=== PATIENT | female | born 1995 | race Caucasian/White ===

== ENCOUNTER 2016-11-14 22:58 | Emergency (ER) | payer BC, OTHER ==
[~2016-11-14] VITALS: Ht 160 cm; Wt 57.0 kg
[2016-11-14 23:00] VITALS: TEMP 36.4; Ht 160 cm; Wt 57.0 kg
[2016-11-14] MEDS ORDERED: SPIR25TA PO (23:18)
[2016-11-14] MEDS ORDERED: DOXY1TAB6 PO (23:18)
[2016-11-14] MEDS ORDERED: BUTA1CAP17 PO (23:18)
[2016-11-14] MEDS ORDERED: CALC600T PO (23:20)
[2016-11-14] MEDS ORDERED: MULT-506 PO (23:20)
[2016-11-14] MEDS ORDERED: CHOL1000 PO (23:20)
[2016-11-14 23:42] LABS: BUN/CREATININE RATIO 10.4 (10-20); CALCIUM 9.1 mg/dl (8.5-10.1); CREATININE 0.71 mg/dl (0.60-1.20); POTASSIUM 3.9 mmol/L (3.5-5.1)
--- NOTE | 2016-11-15 07:20 | DIAGNOSTIC IMAGING REPORT ---
MAXILLOFACIAL CT CT DOSE: HISTORY: fall, ETOH, nose injury TECHNIQUE: Multiaxial CT images of the maxillofacial region were performed and reformatted in the coronal plane without the use of contrast. COMPARISON: None. FINDINGS: Suboptimal evaluation due to motion artifact. Suspect a nondisplaced nasal bone fracture. The pterygoid plates, zygomatic arches, and skull base are intact. No definite mandibular fractures. However, this is compromised due to the motion artifact. Near nondiagnostic evaluation of the orbital floors. No definite fractures identified. The orbits are unremarkable. Upper cervical spine is nondiagnostic. Mid cervical spine is likely intact. The orbits are grossly intact. IMPRESSION: Significant motion artifact resulting in near nondiagnostic evaluation. Probable nasal bone fractures. Electronically signed by: Eliceo Rosen M.D. 11/15/2016 7:18 AM Dictated Date/Time: 11/15/2016 7:15 AM
--- NOTE | 2016-11-15 07:22 | DIAGNOSTIC IMAGING REPORT ---
HEAD CT NONCONTRAST CT DOSE: 1544.51 mGy.cm HISTORY: Trauma fall, ETOH, nose injury TECHNIQUE: Multiaxial CT images of the head were performed without the use of intravenous contrast. Comparison: None. Findings: The paranasal sinuses and mastoid air cells are clear. The calvarium and skull base are intact. The ventricles and sulci are within normal limits. There is no mass, hematoma, midline shift, or acute infarct. Impression: No acute intracranial abnormality. Electronically signed by: Justin Bernardo M.D. 11/15/2016 7:21 AM Dictated Date/Time: 11/15/2016 7:20 AM
[2016-11-15 10:25] VITALS: BP 105/58; PULSE 88; O2SAT 98
--- NOTE | 2016-11-15 17:32 | EMERGENCY ROOM VISIT NOTE ---
ED Visit Note Care of this 21-year-old white female patient was signed out to me from Yolis Castillo PA-C, at change of shift. Please refer to her dictation for the complete history, physical exam and ED course to this point. Briefly patient is a 21-year-old white female who was intoxicated and sustained a fall, suffering facial injuries. At change of shift, the patient was being observed until she reached a more sober state at which point she was to be reassessed for any additional injuries. The patient was observed in the emergency department for almost 12 hours. She was reassessed at roughly 1000, at which point she was awake, alert and conversant. She had complete recollection of the incidents of last evening. She admitted to drinking too much alcohol and sustained multiple falls on the way back to her dorm. She recalls falling and striking her nose. She remembers getting into the ambulance. At the present time, she complains only of pain in her nose. She denies headache or head pain. She denies any other facial bony tenderness. She was reexamined. Her nose is slightly ecchymotic and swollen and slightly tender over the nasal bridge. She does not have any pain over the orbital rims, the zygomatic, mandible or the maxilla. The jaw opens and closes fully. CT scan interpretations by in-house radiology were reviewed by myself. Given her benign exam, it was not felt that repeat maxillofacial CT scan was necessary as I do not suspect any other facial bone fractures. The patient was discharged home in the care of a friend in good condition. MAXILLOFACIAL CT CT DOSE: HISTORY: fall, ETOH, nose injury TECHNIQUE: Multiaxial CT images of the maxillofacial region were performed and reformatted in the coronal plane without the use of contrast. COMPARISON: None. FINDINGS: Suboptimal evaluation due to motion artifact. Suspect a nondisplaced nasal bone fracture. The pterygoid plates, zygomatic arches, and skull base are intact. No definite mandibular fractures. However, this is compromised due to the motion artifact. Near nondiagnostic evaluation of the orbital floors. No definite fractures identified. The orbits are unremarkable. Upper cervical spine is nondiagnostic. Mid cervical spine is likely intact. The orbits are grossly intact. IMPRESSION: Significant motion artifact resulting in near nondiagnostic evaluation. Probable nasal bone fractures. HEAD CT NONCONTRAST CT DOSE: 1544.51 mGy.cm HISTORY: Trauma fall, ETOH, nose injury TECHNIQUE: Multiaxial CT images of the head were performed without the use of intravenous contrast. Comparison: None. Findings: The paranasal sinuses and mastoid air cells are clear. The calvarium and skull base are intact. The ventricles and sulci are within normal limits. There is no mass, hematoma, midline shift, or acute infarct. Impression: No acute intracranial abnormality.
--- NOTE | 2016-11-15 21:28 | EMERGENCY ROOM VISIT NOTE ---
History First contact with patient: 23:04 Chief Complaint: ALCOHOL OVERDOSE Stated Complaint: ALCOHOL OVERDOSE Nursing Triage Summary: Patient was drinking tonight, patient fell and injured nose. Nose bloodied. Denies LOC. Patient walked back to dorm where RA found patient and called for ambulance. History of Present Illness The patient is a 21 year old female who presents to the Emergency Room with complaints of alcohol overdose via EMS. Patient was found by the RA intoxicated with a bloody nose. Patient is drunk and unable to obtain history. She is crying and unable to tell me what happened tonight. Patient has obvious nasal injury. Patient states she had a lot of alcohol tonight. No drugs. Review of Systems Unable to obtain secondary to altered mental status from alcohol overdose Past Medical/Surgical History Unable to obtain secondary to altered mental status from alcohol overdose Social History Smoking Status: Never Smoker Alcohol Use: occasionally Marital Status: in relationship Occupation Status: [employer] student Current/Historical Medications Scheduled Calcium Carbonate (Calcium 600), 600 MG PO DAILY Cholecalciferol (Vitamin D3), 1 TAB PO DAILY Multivitamin (Multivitamin), 1 TAB PO DAILY Allergies Coded Allergies: Sulfamethoxazole w/Trimethoprim (Verified Allergy, Unknown, HIVES, 11/14/16 ) Physical Exam Vital Signs Date Time Temp Pulse Resp B/P Pulse Ox O2 Delivery O2 Flow Rate FiO2 11/15/16 10:25 88 18 105/58 98 11/15/16 09:00 93 18 102/55 98 Room Air 11/15/16 07:30 103 18 124/79 98 Room Air 11/15/16 06:30 85 16 117/86 11/15/16 06:05 82 100 Room Air 11/15/16 06:00 113/67 11/15/16 05:35 96 97 11/15/16 05:30 87 16 114/72 100 Room Air 11/15/16 05:11 88 16 100 11/15/16 05:00 99/66 11/15/16 04:41 91 98 11/15/16 04:31 104/65 11/15/16 04:11 90 99 11/15/16 04:00 111/63 11/15/16 03:41 82 19 100 11/15/16 03:30 90/57 11/15/16 03:11 86 99 11/15/16 03:06 81 99 11/15/16 03:00 96 18 95/57 11/15/16 02:50 81 11/15/16 02:36 83 100 11/15/16 02:30 18 111/66 11/15/16 02:06 95 100 11/15/16 02:01 116/78 11/15/16 01:31 115/76 11/15/16 01:05 99 18 94 Room Air 11/15/16 01:02 130/86 11/15/16 00:35 105 33 95 Room Air 11/15/16 00:30 146/87 11/15/16 00:28 124 17 95 Room Air 11/15/16 00:01 113/74 11/14/16 23:58 105 19 98 11/14/16 23:39 128/84 11/14/16 23:08 Room Air 11/14/16 23:08 Room Air 11/14/16 23:07 130 11/14/16 23:02 157/74 11/14/16 23:00 36.4 132 20 157/74 95 Room Air Physical Exam PHYSICAL EXAM: VITALS: Vitals are noted on the nurse's note and reviewed by myself. Vital signs stable. GENERAL: White female with EtOH odor crying, in no acute distress, nondiaphoretic, well-developed well-nourished. The patient is visibly intoxicated. SKIN: Bilateral elbow abrasions without signs of infection The rest of the skin was without obvious lacerations, abrasions, or rashes. There is no tenting of the skin. Capillary reflex less than 2 seconds. HEENT: Normocephalic, scalp contusion. PERRLA. EOMI. Conjunctiva with mild injection without icterus. Tympanic membranes without erythema or effusion bilaterally no hemotympanum. External auditory canals are clear. Nares patent bilaterally. Dried blood in the nares with nasal bridge edema, no septal hematoma No epistaxis. Oropharynx without erythema or exudate. Uvula midline. Oral mucosal moist. No lymphadenopathy. Neck is supple without cervical spine tenderness. HEART: Regular rate and rhythm without murmurs gallops or rubs. Peripheral pulses 2+. LUNGS: Clear to auscultation bilaterally without wheezes, rales or rhonchi. ABDOMEN: Positive bowel sounds x 4. Normal tympanic percussion. Soft, nontender, without masses or organomegaly. MUSCULOSKELETAL: Gross motor function of the upper and lower extremities intact. The patient has a staggering gait. NEUROLOGIC: The patient is visibly intoxicated. Once they were more sober they were alert and oriented to person place and time. Medical Decision & Procedures Laboratory Results 11/14/16 23:16 Test 11/14/16 23:16 Anion Gap 11.0 mmol/L (3-11) Est Creatinine Clear Calc Drug Dose 104.5 ml/min Estimated GFR () 142.1 Estimated GFR (Non- 122.6 BUN/Creatinine Ratio 10.4 (10-20) Calcium Level 9.1 mg/dl (8.5-10.1) Ethyl Alcohol mg/dL 303.0 mg/dl (0-3) ED Course Prior records/ancillary studies reviewed. Triage Nursing notes reviewed. Additional history obtained from EMS. The patient's history was concerning for altered mental status and a possible alcohol overdose. Differential diagnosis: Etiologies such as alcohol intoxication, toxicologic, infection, hypoglycemia, electrolyte abnormalities, cardiac sources, intracerebral event, neurologic, as well as others were entertained. Physical examination: As above. The patient is clinically intoxicated. facial trauma noted. ER treatment provided: Monitoring Wound care done by nursing Aspiration precautions The patient was frequently reassessed. Diagnostic interpretation by me: Cardiac monitoring did not reveal any evidence of dysrhythmia. The labs revealed no worrisome electrolyte abnormality. The patient's blood alcohol level was 302 mg/dL. Imaging studies: CT HEAD: Left-sided extracranial soft tissue hematoma. No acute skull fractures. Significant motion artifact. While there are no gross acute intracranial hemorrhages, recommend repeat study when patient is better able to cooperate if indicated. No mass effect or midline shift. CT FACIAL: Significant motion. Suspected left nasal bone fracture. Intact pterygoid plates. The temporomandibular joints are well situated. Cannot definitively exclude mandible fractures due to severe motion. Recommend repeat exam when patient is better able to cooperate. Intact globes. No definite orbital fractures or hematoma or emphysema within limits of technique. Minimal sinusitis. Mastoid air cells are clear. Radiologist: Lindy Cramer M.D. Case is signed out to Elisa Giang ACP pending patient sobering up and reevaluation in stable condition. Patient's CTs were limited due to patient's movement. This appears to be consistent with an overdose of alcohol with head injury and nasal bone fracture. Case reviewed with my attending. Medical Decision as above Impression Primary Impression: Alcohol overdose Additional Impressions: Head injury Nasal bone fracture Departure Information Dispostion Home / Self-Care Condition GOOD Patient Instructions My [facility] Additional Instructions Read head injury handout and return for any symptoms. Avoid alcohol and contact sports/activities for one week and follow up with family doctor prior to returning to these activities if still symptomatic. Ice and elevate head. If your symptoms persist more than a week then follow up with the concussion clinic. Call [phone]. Return to ER sooner for headache, fevers, confusion, worsening signs or symptoms or as needed. Follow-up with ENT in 1-2 days for your nasal bone injury. Keep well-hydrated. Tylenol every 6 hours as needed for pain (Maximum 3000 mg Tylenol in 24 hr period). Follow up with family doctor and/or health services as needed. No driving for the next 24 hours. Recommend no alcohol for the next 48 hours and avoid binge drinking in the future. Return to ER sooner for chest pain, abdominal pain, worsening signs or symptoms or as needed. Problem Qualifiers
== END 2016-11-15 10:15 | disposition home or self-care (01) ==
LOC: C.EDB 23:00
DX: T51.0X1A Toxic effect of ethanol, accidental (unintentional), initial encounter (principal); S02.2XXA Fracture of nasal bones, initial encounter for closed fracture; S09.90XA Unspecified injury of head, initial encounter; F10.129 Alcohol abuse with intoxication, unspecified; Y90.9 Presence of alcohol in blood, level not specified; W19.XXXA Unspecified fall, initial encounter; Y99.8 Other external cause status